=== PATIENT | male | born 1980 | race Two or more races ===

== ENCOUNTER 2022-07-22 10:40 | Emergency (ER) | payer MEDICAID ==
[~2022-07-22] VITALS: Ht 167.6 cm; Wt 77.4 kg
[2022-07-22 11:33] LABS: Urine WBC None Seen /hpf (0 - 3)
[2022-07-22 11:55] LABS: Hematocrit 42.3 % (41.0-53.0); Hemoglobin 14.5 g/dL (13.5-17.5); Mean Corpuscular Hemoglobin 35.5 pg (28.0-32.0); Mean Corpuscular Hgb Conc. 34.3 g/dL (32.0-36.0); Mean Corpuscular Volume 103.5 fL (80.0-100.0); Red Blood Cells 4.09 10^6/uL (4.5-5.90); Red Cell Distribution Width 12.8 % (11.8-14.3); White Blood Cell 5.7 10^3/uL (4.4-10.8)
[2022-07-22 12:00] LABS: Urine Bacteria NONE SEEN /hpf (None Seen); Urine Blood Negative /uL (Negative); Urine Mucus MODERATE (None Seen); Urine Specific Gravity 1.029 (1.001-1.035)
[2022-07-22] MEDS ORDERED: LORazepam 2MG/ML-1ML VIAL IV ONE (12:00)
[2022-07-22] MEDS ORDERED: SODIUM CHLORIDE 0.9% 1,000 ML IV ONE (12:00)
[2022-07-22 12:01] LABS: Potassium 3.5 mmol/L (3.5-5.1)
[2022-07-22 12:10] LABS: Albumin 4.4 g/dL (3.4-5.0); BUN/Creatinine Ratio 12.5; Bilirubin, Total 2.2 mg/dL (0.2-1.0); Total Protein 7.7 g/dL (6.4-8.2)
[2022-07-22 12:15] LABS: Band Neutrophils % (manual) 0; Basophils % (manual) 0 (0.0-2.0); Blast Cells 0; Eosinophils % (manual) 0 (0-7); Metamyelocytes % 0; Myelocytes % 0; Promyelocytes % 0; Reactive Lymphocytes 0
[2022-07-22 13:23] LABS: Lymphocytes % (manual) 16 (10.0-50.0); Monocytes % (manual) 16 (0-12)
[2022-07-22 13:25] LABS: Alcohol, Urine < 3.0 mg/dL (0-10); Amphetamine Screen, Urine NEGATIVE (NEGATIVE); Barbiturate Scree,Urine NEGATIVE (NEGATIVE); Benzodiazephine Screen, Urine NEGATIVE (NEGATIVE); Cannabinoid Screen, Urine POSITIVE (NEGATIVE)
[2022-07-22 13:30] LABS: Blood Alcohol < 3.0 mg/dL (0-5); Lipase 268 U/L (73-393)
[2022-07-22 13:33] LABS: Cocaine Screen, Urine NEGATIVE (NEGATIVE); Opiate Scree,Urine NEGATIVE (NEGATIVE); Phencyclidine Screen, Urine NEGATIVE (NEGATIVE)
[2022-07-22 15:34] VITALS: BP 138/73
== END 2022-07-22 15:36 | disposition home or self-care (01) ==
LOC: ER 10:40
DX: F10.239 Alcohol dependence with withdrawal, unspecified (principal); R53.1 Weakness; F12.10 Cannabis abuse, uncomplicated; F17.210 Nicotine dependence, cigarettes, uncomplicated; F14.10 Cocaine abuse, uncomplicated; Y90.8 Blood alcohol level of 240 mg/100 ml or more
CPT/HCPCS: 36415; 80053; 80307; 80320; 81001; 83690; 85007; 85027; 96361; 96374; 99283; J2060; J7030